=== PATIENT | female | born 1980 | race Caucasian/White ===

== ENCOUNTER → 2018-04-22 16:29 | Outpatient (CLI) | payer OTHER, MEDICAID, SELFPAY | PROVIDERS: Family Provider Internal Medicine; PCP Internal Medicine; Visit Provider Physician Assistant | DX: R10.9 Unspecified abdominal pain (principal); R31.9 Hematuria, unspecified | CPT/HCPCS: 87086 ==

== ENCOUNTER → 2018-04-22 16:55 | Outpatient (CLI) | payer OTHER, MEDICAID, SELFPAY ==
[2018-04-22 17:41] LABS: Add Manual Diff / Slide Review NO; Basophils Percent Auto 0.5 % (0-2); Eosinophils Percent Auto 5.6 % (2-4); Hematocrit 41.1 % (36-46); Hemoglobin 13.7 g/dL (12.0-16.0); Lymphocytes Percent Auto 32.5 % (25-40); Mean Corpuscular HGB Conc 33.3 % (30-36); Mean Corpuscular Volume 93.3 fL (80-100); Monocytes Percent Auto 5.8 % (3-14); Neutrophils Absolute Auto 6100 /uL (3000-5900); Neutrophils Percent Auto 55.6 % (50-75); Platelet Count 323 X10^3/uL (150-400); Red Blood Cell Count 4.41 X10^6/uL (4.0-5.2); Red Cell Distribution Width 12.8 % (11.6-14.8); White Blood Cell Count 11.1 X10^3/uL (4.5-11.0)
[2018-04-22 18:08] LABS: Alanine Aminotransferase 53 IU/L (9-52); Albumin 4.6 g/dL (3.5-5.0); Albumin Globulin Ratio 1.5 (1.0-2.8); Alkaline Phosphatase 82 U/L (38-126); Aspartate Aminotransferase 25 IU/L (14-36); Bilirubin Total 0.1 mg/dL (0.2-1.3); Blood Urea Nitrogen 18 mg/dL (7-17); Calcium 9.5 mg/dL (8.4-10.2); Carbon Dioxide 25 mmol/L (22-32); Chloride 105 mmol/L (98-107); Estimated Glomerular Filt Rate > 60.0 mL/min (>60); Glucose 94 mg/dL (70-100); HEMOLYSIS < 15 (0-50); Sodium 143 mmol/L (137-145); Total Protein 7.6 g/dL (6.3-8.2)
== END ==
PROVIDERS: Family Provider Internal Medicine; PCP Internal Medicine; Visit Provider Physician Assistant
DX: R10.9 Unspecified abdominal pain (principal)
CPT/HCPCS: 36415; 80053; 85025; 87086

== ENCOUNTER 2018-12-11 17:17 | Emergency (ER) | payer OTHER, MEDICAID, SELFPAY ==
[2018-12-11 17:24] VITALS: BP 96/64; PULSE 95; RESP 22; TEMP 37.5; O2SAT 96
--- NOTE | 2018-12-11 18:00 | PC.NURSE ---
States took all regular seizure meds last night but this morning took 3mg of lorazapam even thought bottle says 1 mg 4 times a day. States cannot get any pain meds until tomorrow for hurt foot that is bruised and she was seen at [facility] for. Speech is slurred. Does not c/o seizures but states foot pain. Unclear what patient is asking to be evaluated for.
--- NOTE | 2018-12-11 18:04 | ED_ITS ---
HPI - Seizure General Chief Complaint: Seizure Stated Complaint: STATES HAD A SEIZURE TODAY Time Seen by Provider: 12/11/18 18:03 Source: patient Mode of arrival: ambulatory Limitations: no limitations History of Present Illness HPI Narrative: Patient is a 38-year-old female with a history of seizures. She is currently on Dilantin. She has not had a change in her Dilantin medicines for many years now. Her Dilantin is managed by her primary provider. She does not have a neurologist currently. She states that prior to the events in the past week she has not had a seizure in over a year. She states that last she had a seizure. Was seen in an outside facility. She states that during that event she did injure her right foot. She had swelling and pain and bruising around the right foot. A couple days later she went back into the emergency department where she stated that she had an x-ray done of her foot and was told that there were no fractures. She reports that today she had more seizure-like activity. She has some confusion regarding the symptoms today. She also was having worsening pain of her right foot. She has a follow-up tomorrow with her primary doctor already scheduled. Related Data Home Medications Medication Instructions Recorded Confirmed cyclobenzaprine 10 mg PO TID 12/11/18 12/11/18 gabapentin 300 mg PO DAILY 12/11/18 12/11/18 lorazepam 1 mg PO QID 12/11/18 12/11/18 nortriptyline 150 mg PO BEDTIME PRN 12/11/18 12/11/18 omeprazole 40 mg PO BID 12/11/18 12/11/18 oxycodone-acetaminophen 1 tab PO Q6H PRN 12/11/18 12/11/18 sulfamethoxazole-trimethoprim 1 tab PO BIDX7 12/11/18 venlafaxine 300 mg PO DAILY 12/11/18 12/11/18 Previous Rx's Medication Instructions Recorded phenytoin sodium extended 100 mg 100 mg PO BID #180 cap 09/11/18 capsule Allergies Allergy/AdvReac Type Severity Reaction Status Date / Time Penicillins [PENICILLINS] Allergy Severe Hives Verified 04/22/18 15:41 acyclovir [From ZOVIRAX] AdvReac Mild N&V, Verified 04/22/18 15:41 DIARRHEA Review of Systems Constitutional Denies fever(s) and Denies headache(s) ENT Ears, Nose, Mouth, and Throat: Denies headache(s) Cardiovascular Denies chest pain and Denies dyspnea Respiratory Denies dyspnea Gastrointestinal Gastrointestinal: Denies abdominal pain Musculoskeletal Comments: Right foot pain Integumentary/Breasts Comments: Bruising and swelling around the right foot Neurologic Reports confusion, Denies headache(s), Reports memory loss and Reports seizure- like activity Psychiatric Reports anxiety, Reports confusion and Reports memory loss Hematologic/Lymphatic Denies easy bleeding and Denies easy bruising [facility] Medical History Anxiety (Acute) Seizures (Acute) Surgical History (Updated 11/13/17 @ 05:14 by Conversion Provider) History of third molar tooth extraction Status post delivery (07/08/10) Status post hysterectomy (07/31/16) Status post loop electrosurgical excision procedure (LEEP) of cervix (10/19/14) Status post tubal ligation Social History lives independently: Yes Social History lives independently: Yes Exam Initial Vital Signs Initial Vital Signs: Vital Signs Temperature 99.5 F 12/11/18 17:24 Pulse Rate 95 H 12/11/18 17:24 Respiratory Rate 22 12/11/18 17:24 Blood Pressure 96/64 12/11/18 17:24 Pulse Oximetry 96 12/11/18 17:24 Const General: cooperative, well developed, well groomed and No acute distress Orientation: alert, awake and oriented x3 [facility] Head: normal to inspection and normocephalic Resp Effort & Inspection: normal respiratory effort Auscultation: clear to auscultation bilaterally Cardio Rate: regular rate Rhythm: regular rhythm Pulses: radial pulses present and dorsalis pedis present on the right Skin Other: Patient with bruising around her right foot and around her toes. Neuro General: alert, awake and oriented x3 Cranial Nerves: CN's II-XI intact bilaterally Cognition: normal cognition Speech: speech normal Motor: muscle tone normal throughout Sensory Exam: no sensory deficits noted Extrem Other: Patient with tenderness to palpation around the 1st metatarsal. Ankle is unremarkable. Heels unremarkable. Psych Appearance: grossly normal and well kempt Procedures Orthopedic Splinting/Casting Injury #1: Side: right Lower Extremity Injury Location: foot Lower Extremity Immobilizer: posterior splint Other Orthopedic Equipment: crutches Post splinting neuro exam: intact and no change Post splinting vascular exam: no change Placed by: Provider Scores GCS [place] coma scale eye opening: Spontaneous Joanne coma scale verbal response: Orientated Joanne coma scale motor response: Obey commands Joanne coma scale total score: 15 Course Orders Ordered: ED Orders 12/11/18 18:04 EKG-12 Lead Stat 12/11/18 18:20 Ammonia (NH3) Stat Complete Blood Count AUTO DIFF Stat Comprehensive Metabolic Panel Stat Ethanol (ETOH) Stat Lipase Stat Phenytoin / Dilantin Stat Prolactin Stat 12/11/18 18:55 XR foot RT min 3V Stat 12/11/18 20:35 UA Complete [Urinalysis and Microscopic] Stat Discontinued Medications Hydrocodone Bitart/Acetaminophen ([place] 5/325) 1 tab PO NOW ONE Stop: 12/11/18 20:13 Last Admin: 12/11/18 20:15 Dose: 1 tab Hydrocodone Bitart/Acetaminophen (Vicodin Prepack) 1 bottle MISC SEEINSTR ONE Stop: 12/11/18 20:36 Last Admin: 12/11/18 21:01 Dose: 1 bottle Vital Signs - 8 hr 12/11/18 21:30 Pulse Rate 90 Respiratory Rate 20 Blood Pressure 104/68 Pulse Oximetry 98 MDM - Seizure Lab Data Attestation: I reviewed the patient's lab results. Result diagrams: 12/11/18 18:20 12/11/18 18:20 Lab Results 12/11/18 12/11/18 12/11/18 Range/Units 18:20 18:20 18:20 WBC 9.0 (4.5-11.0) X10^3/uL RBC 3.86 L (4.0-5.2) X10^6/uL Hgb 12.2 (12.0-16.0) g/dL Hct 36.5 (36-46) % MCV 94.5 (80-100) fL MCH 31.5 (26-34) PG MCHC 33.3 (30-36) % RDW 13.0 (11.6-14.8) % Plt Count 334 (150-400) X10^3/uL Neut % (Auto) 44.5 L (50-75) % Lymph % (Auto) 39.1 (25-40) % [place] % (Auto) 7.0 (3-14) % Eos % (Auto) 8.6 H (2-4) % Baso % (Auto) 0.8 (0-2) % Neut # (Auto) 4000 (0632-7726) /uL Lymph # (Auto) 3500 (6639-4561) /uL [place] # (Auto) 600 (0-900) /uL Eos # (Auto) 800 H (0-450) /uL Baso # (Auto) 100 (0-100) /uL Sodium 137 (137-145) mmol/L Potassium 4.7 (3.4-5.1) mmol/L Chloride 102 (98-107) mmol/L Carbon Dioxide 23 (22-32) mmol/L BUN 19 H (7-17) mg/dL Creatinine 0.70 (0.52-1.04) mg/dL Estimated GFR > 60.0 (>60) mL/min BUN/Creatinine Ratio 27.1 H (6-22) Glucose 98 (70-100) mg/dL Calcium 9.2 (8.4-10.2) mg/dL Total Bilirubin 0.4 (0.2-1.3) mg/dL AST 35 (14-36) IU/L ALT 41 (9-52) IU/L Alkaline Phosphatase 76 (38-126) U/L Ammonia 24.0 (9-30) umol/L Total Protein 7.9 (6.3-8.2) g/dL Albumin 4.5 (3.5-5.0) g/dL Globulin 3.4 (1.7-4.1) g/dL Albumin/Globulin Ratio 1.3 (1.0-2.8) Lipase 47 (23-300) U/L Prolactin 19.8 H (3.0-18.6) ng/mL Urine Color Urine Appearance Urine pH (4.5-8.0) Ur Specific [place] (1.000-1.035) Urine Protein (Negative) Urine Glucose (UA) (Negative) g/dL Urine Ketones (NEGATIVE) Urine Occult Blood (Negative) Urine Nitrate (Negative) Urine Bilirubin (NEGATIVE) Urine Urobilinogen (0.2) E.U./dL Ur Leukocyte Esterase (NEGATIVE) Urine RBC (0-5/HPF) Urine WBC (0-5/HPF) Ur Squamous Epith Cells (0-5/HPF) Urine Bacteria (None) Ur Culture Indicated? Phenytoin (10-20) ug/mL Ethyl Alcohol < 10 mg/dL 12/11/18 12/11/18 Range/Units 18:20 20:35 WBC (4.5-11.0) X10^3/uL RBC (4.0-5.2) X10^6/uL Hgb (12.0-16.0) g/dL Hct (36-46) % MCV (80-100) fL MCH (26-34) PG MCHC (30-36) % RDW (11.6-14.8) % Plt Count (150-400) X10^3/uL Neut % (Auto) (50-75) % Lymph % (Auto) (25-40) % [place] % (Auto) (3-14) % Eos % (Auto) (2-4) % Baso % (Auto) (0-2) % Neut # (Auto) (7566-4418) /uL Lymph # (Auto) (2312-7415) /uL [place] # (Auto) (0-900) /uL Eos # (Auto) (0-450) /uL Baso # (Auto) (0-100) /uL Sodium (137-145) mmol/L Potassium (3.4-5.1) mmol/L Chloride (98-107) mmol/L Carbon Dioxide (22-32) mmol/L BUN (7-17) mg/dL Creatinine (0.52-1.04) mg/dL Estimated GFR (>60) mL/min BUN/Creatinine Ratio (6-22) Glucose (70-100) mg/dL Calcium (8.4-10.2) mg/dL Total Bilirubin (0.2-1.3) mg/dL AST (14-36) IU/L ALT (9-52) IU/L Alkaline Phosphatase (38-126) U/L Ammonia (9-30) umol/L Total Protein (6.3-8.2) g/dL Albumin (3.5-5.0) g/dL Globulin (1.7-4.1) g/dL Albumin/Globulin Ratio (1.0-2.8) Lipase (23-300) U/L Prolactin (3.0-18.6) ng/mL Urine Color Yellow Urine Appearance Clear Urine pH 5.5 (4.5-8.0) Ur Specific [place] 1.025 (1.000-1.035) Urine Protein Negative (Negative) Urine Glucose (UA) Negative (Negative) g/dL Urine Ketones Negative (NEGATIVE) Urine Occult Blood Negative (Negative) Urine Nitrate Negative (Negative) Urine Bilirubin Negative (NEGATIVE) Urine Urobilinogen 0.2 (0.2) E.U./dL Ur Leukocyte Esterase Negative (NEGATIVE) Urine RBC 0-1/hpf (0-5/HPF) Urine WBC None seen (0-5/HPF) Ur Squamous Epith Cells 0-1 /hpf (0-5/HPF) Urine Bacteria None seen (None) Ur Culture Indicated? Cult not indicated Phenytoin 13.7 (10-20) ug/mL Ethyl Alcohol mg/dL Imaging Data X-ray foot: Radiologist's impression: [place] [address] XRay Report Signed Patient: Amanda Rosenberg [facility]#: [id number] : 1980Acct:[id number] Age/Sex: 38 / FDate of Service: 12/11/18 Loc: Accession Number: [id number] Procedure: XR foot RT min 3V Ordering Provider: Lester Barron D.O. PROCEDURE: XR FOOT RT MIN 3V INDICATIONS: pain and swelling TECHNIQUE: 3 views of the foot were acquired. COMPARISON: None. FINDINGS: Bones: There is cortical irregularity of the lateral aspect of the proximal base of the first metatarsal. Soft tissues: There is diffuse right forefoot soft tissue swelling. IMPRESSION: Cortical irregularity of the lateral aspect of the proximal base of the first metatarsal concerning for possible fracture versus degenerative change, with overlying diffuse right forefoot soft tissue swelling. Correlation with point tenderness recommended. Recommend followup radiographs 7-10 days if there is continued clinical concern. Dictated by: Greg Real M.D. on 12/11/2018 at 19:20 Approved by: Greg Real M.D. on 12/11/2018 at 19:25 ECG Data Attestation: I personally reviewed and interpreted this ECG as follows: Prior ECG tracings: not available for review Interpretation: Sinus rhythm Ventricular rate of 93 Normal axis Normal QRS Normal QTC No ST T wave changes MDM Narrative Medical decision making narrative: Patient is extremely anxious. She states that she normally does not have seizures when she gets anxious however she does have to take lorazepam if she leaves the house. This is prescribed by her primary provider. She already has an appointment tomorrow with her primary provider. She is tender to palpation over the area of the cortical irregularity seen on the x-ray. Given the rest of her physical exam I do have concern that t his is a fracture. She was placed in a posterior splint. She has crutches at home. She was instructed that she to talk with her primary doctor tomorrow about follow-up and referral to see orthopedics. She is currently on Dilantin. She has been taking her medications. Until just this past week she has not had a seizure in greater than a year. Will hold on increasing the Dilantin for now. Will have her primary doctor evaluate this. Patient and her daughter were given return precautions and follow-up instructions. Expressed understanding and agreement with plan. Discharge Plan Departure Patient Disposition: Home Clinical Impression: Seizure Foot fracture Qualifiers: Encounter type: initial encounter Fracture type: closed Laterality: right Qualified Code(s): S92.901A - Unspecified fracture of right foot, initial encounter for closed fracture Discharge Date/Time: 12/11/18 21:30 Interventions: ED Discharge Assessment Last Done: 12/11/18 21:30 Instructions: How to Take Care of Your Splint Activity Restrictions/Additional Instructions: Keep your appointment tomorrow that you already have scheduled with your primary provider. Discuss with your primary provider the indications for changing any of her seizure medication and also follow-up for your foot fracture. Return to the emergency department for any new or worsening symptoms Prescriptions: No Action phenytoin sodium extended [Dilantin Extended] 100 mg capsule 100 mg PO BID Qty: 180 RF: 0 cyclobenzaprine 10 mg tablet 10 mg PO TID RF: 0 omeprazole 40 mg capsule,delayed release(DR/EC) 40 mg PO BID RF: 0 nortriptyline 75 mg capsule 150 mg PO BEDTIME PRN (Reason: as directed) RF: 0 gabapentin 300 mg capsule 300 mg PO DAILY RF: 0 lorazepam 1 MG tablet 1 mg PO QID RF: 0 venlafaxine 150 mg capsule,extended release 24hr 300 mg PO DAILY RF: 0 sulfamethoxazole-trimethoprim 800-160 mg tablet 1 tab PO BIDX7 RF: 0 oxycodone-acetaminophen 5-325 mg tablet 1 tab PO Q6H PRN (Reason: pain) RF: 0 Referrals: Thee Brooks MD [Primary Care Provider] -
[2018-12-11 18:33] LABS: Add Manual Diff / Slide Review NO; Basophils Absolute Auto 100 /uL (0-100); Basophils Percent Auto 0.8 % (0-2); Eosinophils Absolute Auto 800 /uL (0-450); Eosinophils Percent Auto 8.6 % (2-4); Hematocrit 36.5 % (36-46); Hemoglobin 12.2 g/dL (12.0-16.0); Lymphocytes Absolute Auto 3500 /uL (1100-4500); Lymphocytes Percent Auto 39.1 % (25-40); Mean Corpuscular HGB Conc 33.3 % (30-36); Mean Corpuscular Hemoglobin 31.5 PG (26-34); Mean Corpuscular Volume 94.5 fL (80-100); Monocytes Absolute Auto 600 /uL (0-900); Neutrophils Absolute Auto 4000 /uL (1500-7000); Neutrophils Percent Auto 44.5 % (50-75); Platelet Count 334 X10^3/uL (150-400); Red Blood Cell Count 3.86 X10^6/uL (4.0-5.2)
[2018-12-11 18:47] LABS: Alanine Aminotransferase 41 IU/L (9-52); Albumin 4.5 g/dL (3.5-5.0); Albumin Globulin Ratio 1.3 (1.0-2.8); Alkaline Phosphatase 76 U/L (38-126); Aspartate Aminotransferase 35 IU/L (14-36); BUN Creatinine Ratio 27.1 (6-22); Bilirubin Total 0.4 mg/dL (0.2-1.3); Blood Urea Nitrogen 19 mg/dL (7-17); Calcium 9.2 mg/dL (8.4-10.2); Carbon Dioxide 23 mmol/L (22-32); Chloride 102 mmol/L (98-107); Estimated Glomerular Filt Rate > 60.0 mL/min (>60); Ethanol (ETOH) < 10 mg/dL; Globulin 3.4 g/dL (1.7-4.1); Glucose 98 mg/dL (70-100); Lipase 47 U/L (23-300); Sodium 137 mmol/L (137-145); Total Protein 7.9 g/dL (6.3-8.2)
[2018-12-11 18:48] LABS: HEMOLYSIS 65 (0-50); Potassium 4.7 mmol/L (3.4-5.1)
[2018-12-11 18:49] LABS: Phenytoin / Dilantin 13.7 ug/mL (10-20)
--- NOTE | 2018-12-11 18:55 | DI.RAD.S_ITS ---
PROCEDURE: XR FOOT RT MIN 3V INDICATIONS: pain and swelling TECHNIQUE: 3 views of the foot were acquired. COMPARISON: None. FINDINGS: Bones: There is cortical irregularity of the lateral aspect of the proximal base of the first metatarsal. Soft tissues: There is diffuse right forefoot soft tissue swelling. IMPRESSION: Cortical irregularity of the lateral aspect of the proximal base of the first metatarsal concerning for possible fracture versus degenerative change, with overlying diffuse right forefoot soft tissue swelling. Correlation with point tenderness recommended. Recommend followup radiographs 7-10 days if there is continued clinical concern. Dictated by: Greg Real M.D. on 12/11/2018 at 19:20 Approved by: Greg Real M.D. on 12/11/2018 at 19:25
[2018-12-11 19:01] LABS: Prolactin 19.8 ng/mL (3.0-18.6)
--- NOTE | 2018-12-11 19:43 | PC.NURSE ---
194 pt requesting pain medication notified
[2018-12-11] MEDS: HYDROCODONE/ACET 5/325 TABLET 1 TAB PO (20:15)
[2018-12-11 20:53] LABS: Bacteria Urine None Seen; WBC Urine None Seen (0-5/HPF)
[2018-12-11 20:57] LABS: Appearance Urine UA CLEAR; Bilirubin Urine UA NEGATIVE (NEGATIVE); Color Urine UA YELLOW; Glucose Urine UA NEGATIVE (Negative); Ketones Urine UA NEGATIVE (NEGATIVE); Leukocyte Esterase Urine UA NEGATIVE (NEGATIVE); Nitrite Urine UA NEGATIVE (Negative); Occult Blood Urine UA NEGATIVE (Negative); Protein Urine UA NEGATIVE (Negative); Specific Gravity Urine UA 1.025 (1.000-1.035); Urobilinogen Urine UA 0.2 E.U./dL (0.2); pH Urine UA 5.5 (4.5-8.0)
[2018-12-11] MEDS: HYDROCODONE/ACET 5/325 PREPACK 1 BOTTLE MISC (21:01)
[2018-12-11 21:07] LABS: Culture Indicated Urine Cult Not Indicated; RBC Urine 0-1/HPF (0-5/HPF); Squamous Epithelial Cell Urine 0-1 /HPF (0-5/HPF)
[2018-12-11 21:30] VITALS: BP 104/68; PULSE 90; RESP 20; O2SAT 98
== END 2018-12-11 21:30 | disposition home or self-care (01) ==
PROVIDERS: Emergency Provider Emergency Medicine; Family Provider Internal Medicine; PCP Internal Medicine
DX: S92.901A Unspecified fracture of right foot, initial encounter for closed fracture (principal); R56.9 Unspecified convulsions; R41.0 Disorientation, unspecified; R41.3 Other amnesia
CPT/HCPCS: 29515; 36591; 73630; 80053; 80185; 80320; 81001; 82140; 83690; 84146; 85025; 93005; 99283; 99285

== ENCOUNTER 2018-12-31 17:15 | Emergency (ER) | payer OTHER, MEDICAID, SELFPAY ==
[2018-12-31 17:17] VITALS: BP 109/71; PULSE 106; RESP 20; TEMP 37; O2SAT 98; BMI 35.7
--- NOTE | 2018-12-31 18:00 | ED.LOWEXIN ---
HPI - Extremity Injury (Lower) General Chief Complaint: Extremity Injury, Lower Stated Complaint: possible bone infection Time Seen by Provider: 12/31/18 18:00 Source: patient Mode of arrival: ambulatory Limitations: no limitations History of Present Illness HPI Narrative: Patient is a 38-year-old female. Approximately 1 week status post right foot surgery by a generator assembler over at [facility] secondary to a foot fracture. She saw her primary doctor today. There was concern for potential infection because the patient stated that she was having fevers at home. She does report some pain in her foot however no drainage from the incision. Prior to her surgery she was treated with 2 different antibiotics for a urinary tract infection. She stated that her doctor checked her for urinary tract infection today and told her that she did not have 1. She also states that she is feeling somewhat congested. She was told to come to the emergency department for concerns of a possible infection Related Data Home Medications Medication Instructions Recorded Confirmed cyclobenzaprine 10 mg PO TID 12/11/18 12/31/18 gabapentin 300 mg PO DAILY 12/11/18 12/31/18 lorazepam 1 mg PO QID 12/11/18 12/31/18 nortriptyline 150 mg PO BEDTIME PRN 12/11/18 12/31/18 omeprazole 40 mg PO BID 12/11/18 12/31/18 oxycodone-acetaminophen 1 tab PO Q6H PRN 12/11/18 12/31/18 venlafaxine 300 mg PO DAILY 12/11/18 12/31/18 metoprolol succinate 50 mg PO BID 12/31/18 12/31/18 Previous Rx's Medication Instructions Recorded phenytoin sodium extended 100 mg 100 mg PO BID #180 cap 09/11/18 capsule Allergies Allergy/AdvReac Type Severity Reaction Status Date / Time Penicillins [PENICILLINS] Allergy Severe Hives Verified 04/22/18 15:41 acyclovir [From ZOVIRAX] AdvReac Mild N&V, Verified 04/22/18 15:41 DIARRHEA Review of Systems Constitutional Reports fever(s) ENT Ears, Nose, Mouth, and Throat: Reports sinus pressure and Reports sore throat Cardiovascular Denies chest pain Respiratory Denies cough Gastrointestinal Gastrointestinal: Denies abdominal pain Musculoskeletal Denies myalgias and Denies arthralgias Comments: Right foot pain Integumentary/Breasts Comments: No drainage from the incision of the right foot Neurologic Comments: Some tingling to the right foot Hematologic/Lymphatic Denies easy bleeding and Denies easy bruising PFS Medical History Anxiety (Acute) Seizures (Acute) Surgical History History of third molar tooth extraction Status post delivery (07/08/10) Status post hysterectomy (07/31/16) Status post loop electrosurgical excision procedure (LEEP) of cervix (10/19/14) Status post tubal ligation Social History lives independently: Yes Smoking Status: Current every day smoker Social History lives independently: Yes Smoking Status: Current every day smoker Exam Initial Vital Signs Initial Vital Signs: Vital Signs Temperature 98.6 F 12/31/18 17:17 Pulse Rate 106 H 12/31/18 17:17 Respiratory Rate 20 12/31/18 17:17 Blood Pressure 109/71 12/31/18 17:17 Pulse Oximetry 98 12/31/18 17:17 Const General: cooperative, comfortable, well developed, well groomed and No acute distress Orientation: alert and awake Resp Effort & Inspection: normal respiratory effort Auscultation: clear to auscultation bilaterally Cardio Rate: tachycardic Rhythm: regular rhythm Pulses: dorsalis pedis present on the right Skin Other: Surgical incision on the dorsum of the right foot intact. Without redness. Neuro General: alert and awake Cognition: normal cognition Extrem Other: Some swelling to the dorsum of the right foot Psych Appearance: grossly normal and well kempt Course Orders Ordered: ED Orders 12/31/18 18:14 XR foot RT min 3V Stat 12/31/18 19:15 C-Reactive Protein Quant Stat Complete Blood Count AUTO DIFF Stat Comprehensive Metabolic Panel Stat Erythrocyte Sedimentation Rate Stat Vital Signs - 8 hr 12/31/18 17:17 12/31/18 18:50 12/31/18 20:28 Temperature 98.6 F 98.2 F Pulse Rate 106 H 99 H 89 Respiratory Rate 20 17 20 Blood Pressure 109/71 Blood Pressure [Right Arm] 117/71 120/72 Pulse Oximetry 98 100 98 MDM - Extremity Injury (Lower) Lab Data Attestation: I reviewed the patient's lab results. Result diagrams: 12/31/18 19:15 12/31/18 19:15 Lab Results 12/31/18 12/31/18 Range/Units 19:15 19:15 WBC 11.7 H (4.5-11.0) X10^3/uL RBC 3.64 L (4.0-5.2) X10^6/uL Hgb 11.5 L (12.0-16.0) g/dL Hct 34.4 L (36-46) % MCV 94.4 (80-100) fL MCH 31.5 (26-34) PG MCHC 33.4 (30-36) % RDW 13.3 (11.6-14.8) % Plt Count 255 (150-400) X10^3/uL Neut % (Auto) 51.1 (50-75) % Lymph % (Auto) 36.4 (25-40) % [place] % (Auto) 5.9 (3-14) % Eos % (Auto) 5.8 H (2-4) % Baso % (Auto) 0.8 (0-2) % Neut # (Auto) 6000 (9049-9900) /uL Lymph # (Auto) 4300 (5417-1113) /uL [place] # (Auto) 700 (0-900) /uL Eos # (Auto) 700 H (0-450) /uL Baso # (Auto) 100 (0-100) /uL ESR 35 H (0-20) MM/HR Sodium 142 (137-145) mmol/L Potassium 3.6 (3.4-5.1) mmol/L Chloride 107 (98-107) mmol/L Carbon Dioxide 28 (22-32) mmol/L BUN 12 (7-17) mg/dL Creatinine 0.50 L (0.52-1.04) mg/dL Estimated GFR > 60.0 (>60) mL/min BUN/Creatinine Ratio 24.0 H (6-22) Glucose 90 (70-100) mg/dL Calcium 8.9 (8.4-10.2) mg/dL Total Bilirubin 0.3 (0.2-1.3) mg/dL AST 27 (14-36) IU/L ALT 37 (9-52) IU/L Alkaline Phosphatase 91 (38-126) U/L C-Reactive Protein 1.7 H (<1.0) mg/dL Total Protein 7.1 (6.3-8.2) g/dL Albumin 4.0 (3.5-5.0) g/dL Globulin 3.1 (1.7-4.1) g/dL Albumin/Globulin Ratio 1.3 (1.0-2.8) Imaging Data XR foot: Radiologist's impression: [address] [address] XRay Report Signed Patient: Amanda Rosenberg MMR#: [id number] : 1980Acct:[id number] Age/Sex: 38 / FDate of Service: 12/31/18 Loc: ED Accession Number: [id number] Procedure: XR foot RT min 3V Ordering Provider: Lester Barron D.O. PROCEDURE: XR FOOT RT MIN 3V INDICATIONS: S/P surgery with fever eval for osteo TECHNIQUE: 3 views of the foot were acquired. COMPARISON: [facility], , XR FOOT RT MIN 3V, 12/11/2018, 19:00. FINDINGS: Bones: No fractures or dislocations. No suspicious bony lesions. Plate and screw fixation of the first and second tarsometatarsal joints. Hardware appears intact. No focal osseous destruction is seen. There is diffuse forefoot soft tissue swelling. No tibiotalar joint effusion. Achilles tendon appears normal. IMPRESSION: No focal osseous destruction to suggest advanced osteomyelitis. If there is persistent clinical concern, continued short interval radiographic followup or contrast enhanced MRI could be performed to assess for early infection. Forefoot soft tissue swelling. Dictated by: Santosh Ellis M.D. on 12/31/2018 at 18:46 Approved by: Santosh Ellis M.D. on 12/31/2018 at 18:49 MDM Narrative Medical decision making narrative: Patient's heart rate improved in the emergency department. She is afebrile. Her physical exam is not consistent with infection. The x-ray shows no signs of osteomyelitis. She does have a slight increase in some of her inflammatory markers however this could very well be expected this close to surgery. She has a follow-up with her operative surgeon tomorrow. Will hold on antibiotics for now. I suspect that her fever secondary to the sinus congestion sore throat that she is having. Patient was given return precautions and follow-up instructions. She expressed understanding and agreement plan Discharge Plan Departure Patient Disposition: Home Clinical Impression: Post-operative complication Qualifiers: Surgical complication system/body Area: [id number] Encounter type: initial encounter Postoperative shock type: other Discharge Date/Time: 12/31/18 20:57 Interventions: ED Discharge Assessment Last Done: 12/31/18 20:55 Activity Restrictions/Additional Instructions: Keep your appointment that you have with your operative provider tomorrow. Continue all of your post operative instructions give to you by your surgeon. Return to the ER for any new or worsening symptoms. Prescriptions: No Action phenytoin sodium extended [Dilantin Extended] 100 mg capsule 100 mg PO BID Qty: 180 RF: 0 cyclobenzaprine 10 mg tablet 10 mg PO TID RF: 0 omeprazole 40 mg capsule,delayed release(DR/EC) 40 mg PO BID RF: 0 nortriptyline 75 mg capsule 150 mg PO BEDTIME PRN (Reason: as directed) RF: 0 gabapentin 300 mg capsule 300 mg PO DAILY RF: 0 lorazepam 1 MG tablet 1 mg PO QID RF: 0 venlafaxine 150 mg capsule,extended release 24hr 300 mg PO DAILY RF: 0 oxycodone-acetaminophen 5-325 mg tablet 1 tab PO Q6H PRN (Reason: pain) RF: 0 metoprolol succinate 50 mg tablet extended release 24 hr 50 mg PO BID RF: 0 Referrals: Thee Brooks MD [Primary Care Provider] -
--- NOTE | 2018-12-31 18:14 | DI.RAD.S_ITS ---
PROCEDURE: XR FOOT RT MIN 3V INDICATIONS: S/P surgery with fever eval for osteo TECHNIQUE: 3 views of the foot were acquired. COMPARISON: [facility], CR, XR FOOT RT MIN 3V, 12/11/2018, 19:00. FINDINGS: Bones: No fractures or dislocations. No suspicious bony lesions. Plate and screw fixation of the first and second tarsometatarsal joints. Hardware appears intact. No focal osseous destruction is seen. There is diffuse forefoot soft tissue swelling. No tibiotalar joint effusion. Achilles tendon appears normal. IMPRESSION: No focal osseous destruction to suggest advanced osteomyelitis. If there is persistent clinical concern, continued short interval radiographic followup or contrast enhanced MRI could be performed to assess for early infection. Forefoot soft tissue swelling. Dictated by: Santosh Ellis M.D. on 12/31/2018 at 18:46 Approved by: Santosh Ellis M.D. on 12/31/2018 at 18:49
[2018-12-31 18:50] VITALS: BP 117/71; PULSE 99; RESP 17; O2SAT 100
--- NOTE | 2018-12-31 19:12 | PC.NURSE ---
s/p right foot tendon repair december 20, states, still has swelling and pain, now with fever, concern for infection
[2018-12-31 19:29] LABS: Add Manual Diff / Slide Review NO; Basophils Absolute Auto 100 /uL (0-100); Basophils Percent Auto 0.8 % (0-2); Eosinophils Absolute Auto 700 /uL (0-450); Eosinophils Percent Auto 5.8 % (2-4); Hematocrit 34.4 % (36-46); Hemoglobin 11.5 g/dL (12.0-16.0); Lymphocytes Absolute Auto 4300 /uL (1100-4500); Lymphocytes Percent Auto 36.4 % (25-40); Mean Corpuscular HGB Conc 33.4 % (30-36); Mean Corpuscular Hemoglobin 31.5 PG (26-34); Mean Corpuscular Volume 94.4 fL (80-100); Monocytes Absolute Auto 700 /uL (0-900); Monocytes Percent Auto 5.9 % (3-14); Neutrophils Absolute Auto 6000 /uL (1500-7000); Neutrophils Percent Auto 51.1 % (50-75); Platelet Count 255 X10^3/uL (150-400); Red Blood Cell Count 3.64 X10^6/uL (4.0-5.2); Red Cell Distribution Width 13.3 % (11.6-14.8); White Blood Cell Count 11.7 X10^3/uL (4.5-11.0)
[2018-12-31 19:44] LABS: Alanine Aminotransferase 37 IU/L (9-52); Albumin Globulin Ratio 1.3 (1.0-2.8); Alkaline Phosphatase 91 U/L (38-126); Aspartate Aminotransferase 27 IU/L (14-36); Bilirubin Total 0.3 mg/dL (0.2-1.3); Blood Urea Nitrogen 12 mg/dL (7-17); C-Reactive Protein Quant 1.7 mg/dL (<1.0); Calcium 8.9 mg/dL (8.4-10.2); Carbon Dioxide 28 mmol/L (22-32); Chloride 107 mmol/L (98-107); Estimated Glomerular Filt Rate > 60.0 mL/min (>60); Globulin 3.1 g/dL (1.7-4.1); Glucose 90 mg/dL (70-100); HEMOLYSIS < 15 (0-50); Potassium 3.6 mmol/L (3.4-5.1); Sodium 142 mmol/L (137-145); Total Protein 7.1 g/dL (6.3-8.2)
[2018-12-31 19:49] LABS: Erythrocyte Sedimentation Rate 35 MM/HR (0-20)
[2018-12-31 20:28] VITALS: BP 120/72; PULSE 89; RESP 20; TEMP 36.8; O2SAT 98
--- NOTE | 2018-12-31 20:28 | PC.NURSE ---
[facility] contacted for copy of xray prior to d/c.
== END 2018-12-31 20:57 | disposition home or self-care (01) ==
PROVIDERS: Emergency Provider Emergency Medicine; Family Provider Internal Medicine; PCP Internal Medicine
DX: T81.9XXA Unspecified complication of procedure, initial encounter (principal)
CPT/HCPCS: 36415; 73630; 80053; 85025; 85651; 86140; 99283; 99284

== ENCOUNTER 2019-05-30 15:01 | Observation (INO) | payer OTHER, MEDICAID, SELFPAY ==
[2019-05-22 07:26] VITALS: BMI 34.7
[2019-05-29] VITALS (16 sets, daily range): BP systolic 98–148; BP diastolic 47–91; PULSE 76–921; RESP 9–18; TEMP 35.9–37.5; O2SAT 93–99; BMI 35.0
[2019-05-29] MEDS: LACTATED RINGERS 1,000 ML 100 ML IV ×3 (10:22→23:40)
--- NOTE | 2019-05-29 10:22 | SUR.PREOP ---
Spoke with Dr. Gonzales about pt's allergy and antibiotic order.
--- NOTE | 2019-05-29 10:38 | PM.PREOP ---
Pre-operative Note Interval Note History & Physical reviewed/Exam performed by Physician: Yes Changes to H&P: No
[2019-05-29] MEDS: CEFAZOLIN 2 GM/100 ML FROZ.PIGGY IV (10:52)
--- NOTE | 2019-05-29 11:22 | SUR.OPER ---
Lithotomy on padded OR bed, head on pillow, arms secured on padded arm boards at <90 degrees abduction. Legs secured in padded yellow fins stirrups.
[2019-05-29] MEDS: BUPIVACAINE 0.25% W/ EPI 30 ML VIAL INJ (11:40)
--- NOTE | 2019-05-29 12:43 | SUR.PHASEI ---
Assumed care at 1236.
[2019-05-29] MEDS: HYDROMORPHONE 2 MG INJ IV (12:48)
--- NOTE | 2019-05-29 13:08 | SUR.PHASEI ---
Report called to Day
--- NOTE | 2019-05-29 13:37 | SUR.PHASEI ---
Patient transferred to floor with belongings bag. VS stable. IV saline locked. Scant amount of yellow color to mona-pad. Report given to Day.
--- NOTE | 2019-05-29 15:27 | PC.NURSE ---
Late entry: Pt was brought to the AC floor at approx. 1330 from PACU. She was A & O x 3 but sleepy. Molina catheter in place draining clear yellow urine. Tail of vaginal packing has been visualized. Scant to trace amount of serosanginous drainage noted on peripad. Pt denies pain. No n/v.
[2019-05-29] MEDS: INFLUENZA VACCINE 0.5 ML SYRINGE IM (16:01)
[2019-05-29] MEDS: OXYCODONE/ACETAMINOPHEN 5/325 TABLET 2 TAB PO ×2 (16:08→20:08)
[2019-05-29] MEDS: KETOROLAC 30 MG/ML VIAL IV (18:44)
[2019-05-29] MEDS: GABAPENTIN 300 MG CAPSULE PO (18:44)
[2019-05-29] MEDS: METOPROLOL ER 50 MG TABLET PO (20:05)
[2019-05-29] MEDS: DOCUSATE 250 MG CAPSULE PO (20:05)
[2019-05-29] MEDS: PANTOPRAZOLE 40 MG TABLET PO (20:08)
[2019-05-29] MEDS: ARIPiprazole 10 MG TABLET 5 MG PO (20:10)
--- NOTE | 2019-05-29 21:33 | PC.NURSE ---
Pain Control Patient reported 8 out of 10 pain located around vaginal area. Alyssa (RN) administered oxycodone/acetaminophen 5 mg / 325 mg PO at 20:08. Repositioned patient for pain relief. Reassessed patient's pain level and she reported a 3 out of 10. She feels much better and hopes to get enough sleep tonight. Encouraged patient to use the call light for assistance. Call light is within reach and bed is in the lowest position and locked.
--- NOTE | 2019-05-29 22:02 | PC.NURSE ---
pain controlled with 2 tabs of percocet. pt refused to ambulate today. SCDs on and moving her legs. mona pad had scant amount of blood. fernandez patent. pt feels that her bladder is full, repositioned pt and slightly pushed fernandez tubing in then it drained extra 100cc of urine out. pt states she feels more comfortable now. bladder scanned her and there was only 3ml. call light in reach. bed alarm active.
[2019-05-30] VITALS (8 sets, daily range): BP systolic 109–123; BP diastolic 53–69; PULSE 86–111; RESP 16–18; TEMP 36.3–37.4; O2SAT 96–100
[2019-05-30] MEDS: OXYCODONE/ACETAMINOPHEN 5/325 TABLET 2 TAB PO ×6 (00:19→22:04)
--- NOTE | 2019-05-30 01:09 | PC.NURSE ---
Addendum entered by Abigail Coulter R.N. 05/30/19 05:44: Slept past several hours. States pain this morning is again 7/10 so medicated with Percocet. Temp still slightly elevated at 99.3 Addendum entered by Abigail Coulter R.N. 05/30/19 01:25: States pain did get down to 4/10 but now back to 7/10; medicated with Toradol. Original Note: 0030 Patient is alert and oriented. Breath sounds CTA with RA sat of 96%. HRR but tachy at 106 bpm. Denies nausea. BT hypoactive but states she is passing flatus. Indwelling catheter is patent; urine is clear yellow. Complains of pressure type pain in vaginal area like a baby is ; rates severity as 7/10 so medicated with Percocet. Peripad changed with scant serous drainage. Is able to turn self in bed. Has chronic right foot tingling. Wearing bilateral calf SCD's. Mood is restless and anxious. Spouse present in room. Fall risk score is moderate; calls for assistance appropriately. Noted temp elevated at 99.5 so instructed in CDB to prevent complications; verbalizes understanding.
[2019-05-30] MEDS: KETOROLAC 30 MG/ML VIAL IV ×3 (01:23→16:10)
[2019-05-30] MEDS: METOPROLOL ER 50 MG TABLET PO ×2 (05:38→18:01)
[2019-05-30 06:47] LABS: Add Manual Diff / Slide Review NO; Basophils Absolute Auto 100 /uL (0-100); Basophils Percent Auto 0.4 % (0-2); Eosinophils Absolute Auto 0 /uL (0-450); Eosinophils Percent Auto 0.3 % (2-4); Hematocrit 32.8 % (36-46); Lymphocytes Absolute Auto 2200 /uL (1100-4500); Lymphocytes Percent Auto 12.5 % (25-40); Mean Corpuscular HGB Conc 33.6 % (30-36); Mean Corpuscular Hemoglobin 30.7 PG (26-34); Mean Corpuscular Volume 91.3 fL (80-100); Monocytes Absolute Auto 1000 /uL (0-900); Monocytes Percent Auto 5.4 % (3-14); Neutrophils Absolute Auto 14600 /uL (1500-7000); Neutrophils Percent Auto 81.4 % (50-75); Platelet Count 273 X10^3/uL (150-400); Red Blood Cell Count 3.59 X10^6/uL (4.0-5.2); Red Cell Distribution Width 13.1 % (11.6-14.8); White Blood Cell Count 17.9 X10^3/uL (4.5-11.0)
[2019-05-30] MEDS: DOCUSATE 250 MG CAPSULE PO ×2 (09:08→18:02)
[2019-05-30] MEDS: PANTOPRAZOLE 40 MG TABLET PO ×2 (09:09→18:01)
[2019-05-30] MEDS: VENLAFAXINE ER 75 MG CAP 300 MG PO (09:09)
--- NOTE | 2019-05-30 12:49 | PC.NURSE ---
Addendum entered by Palak Andujar R.N. 05/30/19 13:18: At 1317, left message with Dr. Gonzales's nurse at office regarding pt's recent void of 300mls and PVR was 205mls. Also request from pt to speak with Dr. Gonzales prior to discharge. Original Note: Day Shift- Pt anxious this AM, needs re-directing during explanation of plan of care. [employer] needs to repeats statements several times. Pt's at bedside, support provided. Urinary catheter and packing removed at [address] Gonzales given to JENNIFER Hartman Coordinator. Pt voided X2 at 0950, for 90 mls total, PVR at 1005 was 108mls. Will continue to monitor. Toradol IV prn given at 0855 with little effect. PRN Percocet given at 0950 with good effect, pt wanted to rest/sleep. Pt aware to call with next void in order to perform PVR bladder scan. Pt wants to go home today.
--- NOTE | 2019-05-30 16:19 | PM.PNPO.1 ---
Subjective Subjective Date Patient Seen: 05/30/19 Time Patient Seen: 16:19 Interval history: Patient is a 39-year-old 4 para 3 who underwent an anterior and posterior repair yesterday. Her Fernandez catheter was removed this morning as well as her vaginal packing. She has had increasing volume of postvoid residuals since the catheter was removed. Her bladder is feeling very full. Exam Vital Signs (past 8 hours): - 05/30/19 12:30 Temperature 98.6 F Pulse Rate 90 Respiratory Rate 17 Blood Pressure 118/65 Pulse Oximetry 96 Oxygen Delivery Method Room Air Oxygen Flow Rate 0 Narrative Exam Narrative: Generally: Patient lying in bed, no acute distress Lungs: Clear to auscultation bilaterally Cardiovascular: Regular rate and rhythm Abdomen: Soft, flat. Perineum: Intact. Small amount of blood Objective Labs Result Diagrams: 05/30/19 06:32 Labs: Laboratory Results - last 24 hr 05/30/19 06:32 WBC 17.9 H RBC 3.59 L Hgb 11.0 L Hct 32.8 L MCV 91.3 MCH 30.7 MCHC 33.6 RDW 13.1 Plt Count 273 Neut % (Auto) 81.4 H Lymph % (Auto) 12.5 L Bracken % (Auto) 5.4 Eos % (Auto) 0.3 L Baso % (Auto) 0.4 Neut # (Auto) 66446 H Lymph # (Auto) 2200 Bracken # (Auto) 1000 H Eos # (Auto) 0 Baso # (Auto) 100 Assessment & Plan Post-op Postoperative Procedures: Procedures Operation Date: 05/29/19 10:45 Actual Procedures Side Surgeon p Colporrhaphy Anterior/Posterior Brooke Gonzales MD Postoperative day: 1 Postoperative status: urinary retention (Increasing PVR's after fernandez catheter removed) and marginal pain control Postoperative plan: routine post-op care and voiding trials Postoperative plan narrative: Replace Fernandez catheter Fernandez catheter to be removed May 31, 2019 between 7 and 8:00 a.m. Voiding trials tomorrow morning Added codeine in between doses of Percocet for pain control Time Spent With Patient Time with patient: 15-24 minutes Quality VTE Deep Vein Thrombosis/Pulmonary Embolism Present on Admission: No
--- NOTE | 2019-05-30 16:21 | PM.GYNOP.1 ---
Operative Date/Time/Diagnoses Date of procedure: 05/29/19 Time of procedure: 12:15 Pre-op diagnosis: Symptomatic third-degree cystocele and third-degree rectocele Post-op diagnosis: same Procedure & Clinicians Procedure: Procedures Operation Date: 05/29/19 10:45 Actual Procedures Side Surgeon p Colporrhaphy Anterior/Posterior Brooke Gonzales MD Indications: Symptomatic third-degree cystocele and rectocele Surgeon: Brooke Gonzales Corrugator Operator: Tab Reed Anesthesia Type: General Operative Notes Findings: Third-degree cystocele Third-degree rectocele Closure Type: primary Specimen(s): none Applied: catheter Estimated blood loss (mL): 75 Blood products transfused: none Procedure in detail: The patient was taken to the operating room where she was placed in the dorsal supine position. After adequate general endotracheal anesthesia was achieved, she was placed in the dorsal lithotomy position, and prepped and draped in the usual sterile fashion. A time-out was performed. 2 Allis clamps were placed at the apex of the cystocele. 6 mL of half percent Marcaine with epinephrine were injected and an incision was made with a #10 blade between the 2 Allis clamps. Wide Allis clamps were placed on the midline of the cystocele approximately 5. The mucosa was undermined using the Metzenbaum scissors and the mucosa incised in the midline moving the wide Allis clamps to the edges of the mucosa. The mucosa was dissected off the underlying fascia using an open moistened Ray-Maci and a #10 blade. The fascia was reapproximated with 0 Vicryl with a series of horizontal mattress sutures. The excess vaginal mucosa was excised. The mucosa was closed using simple interrupted sutures with 2-0 Vicryl including the underlying fascia to close the space. The weighted speculum was removed from the vagina. Allis clamps were placed at the mucocutaneous junction at the introitus. 6 mL of half percent Marcaine with epinephrine were injected. An incision was made with a #10 blade between the 2 Allis clamps, and a triangular piece of skin and underlying subcutaneous tissue was removed. Allis clamps were placed in the midline of the rectocele. 10 mL of half percent Marcaine with epinephrine were injected submucosally. The mucosa was undermined using the Metzenbaum scissors and the mucosa incised in the midline, moving the wide Allis clamps to the mucosal edges. The underlying fascia was dissected off of th mucosa using an open moistened Ray-Maci and a #10 blade. The fascia was reapproximated using 0 Vicryl with a series of horizontal mattress sutures. The excess vaginal mucosa was excised. The mucosa was closed using 2-0 Vicryl in a running fashion, including the underlying fascia to close the space. On the perineum 0 Vicryl was used to reapproximate the levator muscle. The subcutaneous layer was closed with 2-0 Vicryl. The skin was closed with 2-0 chromic in a subcuticular fashion. Hemostasis was achieved. A Betadine moistened vaginal pack was placed into the vagina. A rectal exam was done and there were no sutures palpable in the rectum. The urine was clear. Sponge, lap, and instrument counts were correct x-2. The patient tolerated the procedure well, was taken to PACU in stable condition.m Complications: none Post-operative Condition: stable Disposition: PACU Plan for aftercare: To Acute Care after recovery
[2019-05-30] MEDS: OXYCODONE IR 5 MG TABLET PO (16:50)
[2019-05-30] MEDS: ARIPiprazole 10 MG TABLET 5 MG PO (18:02)
[2019-05-30] MEDS: LACTATED RINGERS 1,000 ML 100 ML IV (18:47)
[2019-05-31] MEDS: OXYCODONE IR 5 MG TABLET PO ×2 (00:10→09:22)
[2019-05-31] MEDS: OXYCODONE/ACETAMINOPHEN 5/325 TABLET 2 TAB PO ×3 (02:14→11:13)
[2019-05-31] MEDS: LACTATED RINGERS 1,000 ML 100 ML IV (03:36)
[2019-05-31 05:00] VITALS: BP 143/86; PULSE 88; RESP 16; TEMP 36; O2SAT 98
[2019-05-31 08:35] VITALS: BP 108/69; PULSE 95; RESP 20; TEMP 36.5; O2SAT 97
[2019-05-31] MEDS: DOCUSATE 250 MG CAPSULE PO (09:15)
[2019-05-31] MEDS: METOPROLOL ER 50 MG TABLET PO (09:15)
[2019-05-31] MEDS: VENLAFAXINE ER 75 MG CAP 300 MG PO (09:19)
--- NOTE | 2019-05-31 10:04 | PC.NURSE ---
Addendum entered by Palak Andujar R.N. 05/31/19 11:58: Dr. Gonzales aware that pt possibly had a vape device in her room as described below. Discharge summary packet reviewed with pt and her at bedside, questions answered. Pt given prescriptions for Percocet and Codeine. Pt given verbal instructions on constipation prevention, stool softeners, laxatives. Pt takes ex-lax at home and states she has a BM every 4 days when at home. Enc water drinking, no straining when trying to have a BM. Pt left unit via wheelchair at 1200 in no distress with all belongings. Pt's present to drive her home. Pt had RN escort via wheelchair. Addendum entered by Palak Andujar R.N. 05/31/19 10:12: This AM around 0910, pt assisted OOB to BR, a round rainbow colored disc device seen on pt's bed. When this investment underwriter asked what it was, pt's took and stated it was her compact. THis investment underwriter stated, I hope it's not something bad she puts in her lungs. stated no. RN Coordinator aware and will make Dr. Gonzales aware upon her arrival. Addendum entered by Palak Andujar R.N. 05/31/19 10:08: Pt's upset with this investment underwriter due to pt wanting her bed elevated high . Explained the need to have bed in the lowest position, pt on pain meds, door closed, in room intermittent, and risk of falls. stated you gotta have it your way. Original Note: Day Shift- Spoke with Dr. Gonzales at 1002, update given regarding, pt voided 650 between 1404-9292, PVR at 0850 was 147ml. Pt voided again at 0920 for 150ml. Scant sang drainage noted on mona-pad. Pt did c/o feeling like not emptying her bladder fully, pressure, vagina swelling, some inc when standing.
--- NOTE | 2019-05-31 13:04 | CM.IDA ---
Discharge Planning/Care Management CM Discharge Assessment Start: 05/31/19 12:46 Freq: Status: Active Protocol: Document 05/31/19 12:46 OLIVIER (Rec: 05/31/19 13:04 OLIVIER [id number]) Discharge Planning Assessment Assigned Regional Hr Manager MARY Martins DPOA/Assigned Designee Name Julian Alexander, mother and father Contact Information [phone] Advance Directives? No Advance Directives on File No History Provided By Patient Prior Living Arrangements House Household Members significant other,children Type of transporation used prior to Drives own vehicle admit Independent with ADL's Yes Is patient alert and oriented? Yes Caregiver for Another Yes: Children Comment This LUBE TECHNICIAN asks pt and spouse how old are your kids? spouse responds old enough Barriers to Discharge No Comment Home w/spouse and family to assist as needed Discharge Plan Home Transportation Arrangement Family Referrals Initiated None needed
== END 2019-05-31 12:01 | disposition home or self-care (01) ==
LOC: OR 15:16
PROVIDERS: Admitting Provider Obstetrics & Gynecology; Family Provider Internal Medicine; PCP Internal Medicine; Visit Provider Obstetrics & Gynecology
PROC: (CPT 57260; principal; 2019-05-29 10:45)
DX: N81.6 Rectocele (principal); N81.10 Cystocele, unspecified; F17.210 Nicotine dependence, cigarettes, uncomplicated; Z23 Encounter for immunization
CPT/HCPCS: 57260; 36415; 85025; 90471; 90656; G0378; J0690; J1100; J1170; J1885; J2405; J2704; J3010; Q2038

== ENCOUNTER → 2019-08-21 13:03 | Outpatient (CLI) | payer OTHER, MEDICAID, SELFPAY ==
[2019-05-29 14:42] VITALS: BMI 35.0
--- NOTE | 2019-08-21 13:04 | DI.US.S_ITS ---
LIMITED ULTRASOUND OF RIGHT BREAST AND AXILLA: 08/21/2019 CLINICAL: Palpable right breast lump. Comparison is made to exams dated: 08/21/2019 mammogram - [facility], 07/23/2015 mammogram, and 07/23/2015 ultrasound - [facility]. Real-time ultrasound of the right breast upper outer quadrant and axilla regions was performed. Carr scale images of the real-time examination were reviewed. No significant abnormalities were seen sonographically in the right breast or the right axilla. IMPRESSION: NEGATIVE There is no sonographic evidence of malignancy. Return to annual mammogram screening schedule is recommended. This exam was interpreted at Station ID: [id number]. Electronically Signed By: Doroteo Naranjo M.D. slc/:08/21/2019 15:25:44 letter sent: Normal Exam Ultrasound BI-RADS: 1 Negative
--- NOTE | 2019-08-21 13:04 | DI.US.S_ITS ---
LIMITED ULTRASOUND OF LEFT BREAST AND AXILLA: 08/21/2019 CLINICAL: Palpable left breast lump. Comparison is made to exams dated: 08/21/2019 mammogram - [facility], 07/23/2015 mammogram, and 07/23/2015 ultrasound - [facility]. Real-time ultrasound of the left breast upper outer quadrant and axilla regions was performed. Carr scale images of the real-time examination were reviewed. No significant abnormalities were seen sonographically in the left breast or the left axilla. IMPRESSION: BENIGN There is no sonographic evidence of malignancy. Return to annual mammogram screening schedule is recommended. This exam was interpreted at Station ID: [id number]. Electronically Signed By: Doroteo Naranjo M.D. slc/:08/21/2019 15:26:52 letter sent: Normal Exam Ultrasound BI-RADS: 2 Benign
--- NOTE | 2019-08-21 13:21 | DI.MG.S_ITS ---
Patient Name: BUD OLIVEROS date: 1980 Sex: F Attending Physician: Stefania Indications: Date: 08/21/2019 13:21 At the request of: ZOHRA LOPEZ Procedure: MM diagnostic mammo BI BILATERAL DIGITAL DIAGNOSTIC MAMMOGRAM 3D/2D: 08/21/2019 CLINICAL: Bilateral upper outer quadrant breast lumps and tenderness. Comparison is made to exams dated: 07/23/2015 mammogram and 07/23/2015 ultrasound - [facility]. The tissue of both breasts is heterogeneously dense. This may lower the sensitivity of mammography. Patient reports bilateral upper outer quadrant breast lumps and tenderness. There is dense fibroglandular tissue of the bilateral upper outer breast quadrants without other underlying mass or abnormality. No significant masses, calcifications, or other findings are seen in either breast. IMPRESSION: INCOMPLETE: NEEDS ADDITIONAL IMAGING EVALUATION Patient reports bilateral upper outer quadrant breast lumps and tenderness. There is dense fibroglandular tissue of the bilateral upper outer breast quadrants without other underlying mass or abnormality. A targeted ultrasound is recommended for further evaluation, and will be performed immediately following this exam. This exam was interpreted at Station ID: [id number]. NOTE: For mammograms, a report in lay terms will be sent to the patient. Approximately 15% of breast malignancies will not be visualized mammographically. In the management of a palpable breast mass, a negative mammogram must not discourage biopsy of a clinically suspicious lesion. Electronically Signed By: Greg Real M.D. ecl/:08/21/2019 14:00:56 ACR BI-RADS Category 0: Incomplete [id number] Continued Report - Page 2 of 2 Patient Name: BUD OLIVEROS date: 1980 Sex: F Attending Physician: Stefania Indications: Date: 08/21/2019 13:21 At the request of: ZOHRA LOPEZ Procedure: MM diagnostic mammo BI
== END ==
PROVIDERS: Family Provider Internal Medicine; PCP Internal Medicine; Referring Provider Obstetrics & Gynecology; Visit Provider Obstetrics & Gynecology
DX: R92.8 Other abnormal and inconclusive findings on diagnostic imaging of breast (principal); N63.21 Unspecified lump in the left breast, upper outer quadrant; N63.11 Unspecified lump in the right breast, upper outer quadrant; N64.4 Mastodynia
CPT/HCPCS: 76642; 77066; G0279

== ENCOUNTER 2019-09-09 13:40 | Day surgery (SDC) | payer OTHER, MEDICAID, SELFPAY ==
[2019-05-29 14:42] VITALS: BMI 35.0
[2019-09-09] MEDS: SODIUM CHLORIDE 0.9% 1,000 ML 200 ML IV (14:56)
[2019-09-09 15:06] VITALS: BP 117/77; PULSE 98; RESP 20; TEMP 36.4; O2SAT 99
[2019-09-09 15:07] VITALS: BMI 36.5
--- NOTE | 2019-09-09 15:36 | PM.PREOP ---
Pre-operative Note Interval Note History & Physical reviewed/Exam performed by Physician: Yes Changes to H&P: No H&P completed within 30 days and has changed as indicated here:: This is a patient with a history of severe PTSD, who did not tolerate her colonoscopy procedure with sedation back in October. Due to the high risk of another failed colonoscopy, and the risk of the endoscopist giving the high dose of sedation required for this patient while also trying to do her colonoscopy, an anesthesia consult was requested. It would be unsafe to proceed in this patient with conscious sedation provided by the endoscopist given her history. Therefore I have asked the anesthesiologist to manage her vitals and her sedation throughout the procedure. ASA Class (for procedural sedation): III
--- NOTE | 2019-09-09 16:02 | PM.OP.ENDO ---
Operative Date/Time/Diagnoses Date of procedure: 09/09/19 Time of procedure: 16:02 Pre-op diagnosis: Rectal bleeding Post-op diagnosis: other (Normal colon, grade 2 internal hemorrhoids without stigmata of bleeding) Procedure & Clinicians Study performed: Diagnostic colonoscopy Same procedure as scheduled: Yes Indications: Rectal bleeding Surgeon: Riya Shane Procedure Notes SCOAP/Timeout: Performed Procedure in detail: The patient was brought to the room and placed supine position. General anesthesia was induced the patient was intubated with an LMA by Dr. Haider. She was then placed in left lateral decubitus position with all bony prominences padded. A time-out was performed. Vitals were monitored throughout the procedure and remained stable. A rectal exam was performed revealing no abnormalities. The colonoscope was then introduced to the rectum and advanced to the cecum in the usual fashion. The cecum was identified by the appendiceal orifice, the mucosal tri-fold, and the ileocecal valve. The scope was then retracted while rotating side to side and examining each mucosal fold. At the conclusion of the procedure retroflexion was performed and small grade 1-2 internal hemorrhoids without stigmata of bleeding were seen. The scope was then withdrawn from the rectum the procedure was concluded. The patient tolerated the procedure well and was transferred to the PACU in stable condition. Scope withdrawal time: 8 Findings: internal hemorrhoids Specimen(s): none sent Complications: none Impression: Normal colon, grade 2 internal hemorrhoids without stigmata of bleeding Post-procedure Recommendations: Colonscopy in 10 years and Other recommendation (Use a daily fiber supplement such as Metamucil, do not sit on the toilet for more than 2 minutes at a time to have a bowel movement, follow-up as needed for hemorrhoid symptoms) Follow up: as needed Disposition: PACU
[2019-09-09 16:10] VITALS: BP 112/75; PULSE 92; RESP 18; TEMP 36.8; O2SAT 100
[2019-09-09 16:15] VITALS: BP 96/61; PULSE 92; RESP 12; O2SAT 99
[2019-09-09 16:20] VITALS: BP 99/77; PULSE 92; RESP 12; O2SAT 99
[2019-09-09 16:27] VITALS: BP 112/74; PULSE 93; RESP 12; TEMP 36.9; O2SAT 99
== END 2019-09-09 16:36 | disposition home or self-care (01) ==
PROVIDERS: Family Provider Internal Medicine; PCP Internal Medicine; Referring Provider Surgery; Visit Provider Surgery
PROC: 0DJD8ZZ Inspection of Lower Intestinal Tract, Via Natural or Artificial Opening Endoscopic (ICD-10-PCS; CPT 45378; principal; 2019-09-09 16:00)
DX: K64.1 Second degree hemorrhoids (principal); F43.10 Post-traumatic stress disorder, unspecified
CPT/HCPCS: 45378; J2704; J3010

== ENCOUNTER → 2019-12-20 15:08 | Outpatient (CLI) | payer OTHER, MEDICAID, SELFPAY ==
[2019-05-29 14:42] VITALS: BMI 35.0
[2019-12-21 07:27] LABS: COVID19 Sendout Not Detected (Not Detect)
== END ==
PROVIDERS: Family Provider Internal Medicine; PCP Internal Medicine; Visit Provider Physician Assistant
DX: Z01.818 Encounter for other preprocedural examination (principal)
CPT/HCPCS: 87635

== ENCOUNTER 2019-12-22 13:05 | Day surgery (SDC) | payer OTHER, MEDICAID, SELFPAY ==
[2019-05-29 14:42] VITALS: BMI 35.0
[2019-12-18 07:43] VITALS: BMI 32.8
[2019-12-22] VITALS (10 sets, daily range): BP systolic 95–119; BP diastolic 55–79; PULSE 92–100; RESP 8–16; TEMP 36.2–36.9; O2SAT 91–100; BMI 37.8
[2019-12-22] MEDS: LACTATED RINGERS 1,000 ML 42 ML IV ×2 (13:49→15:56)
[2019-12-22] MEDS: OXYMETAZOLINE NASAL SPRAY 30 ML 2 SPRAYS NASAL (13:50)
--- NOTE | 2019-12-22 14:56 | PM.PREOP ---
Pre-operative Note COVID-19 COVID-19 status: Negative Result date/Date tested (Pos, Neg/Pending): 12/20/19 Interval Note History & Physical reviewed/Exam performed by Physician: Yes Changes to H&P: No
--- NOTE | 2019-12-22 15:41 | SUR.OPER ---
Supine on padded OR bed, head on pillow, arms secured on padded arm boards at sides, legs uncrossed, safety belt at thigh.
[2019-12-22] MEDS: BUPIVACAINE 0.25% W/ EPI 30 ML VIAL INJ (15:46)
[2019-12-22] MEDS: LIDOCAINE 1% W/EPI 20 ML INJ (15:46)
--- NOTE | 2019-12-22 16:19 | PM.OP.1 ---
Operative Date/Time/Diagnoses Date of procedure: 12/22/19 Time of procedure: 16:19 Pre-op diagnosis: Chronic tonsillitis, recurring acute tonsillitis, throat pain Post-op diagnosis: same Procedure & Clinicians Procedure: Tonsillectomy Same procedure as scheduled: Yes Indications: 39-year-old female with the above diagnoses incompletely managed with medical therapy presents for the above procedure. Following discussion of the material risks benefits complications and alternatives the patient elected to proceed. Surgeon: Refugio Ray Click Yes if Unassisted: Yes Anesthesia Type: General and Local Operative Notes Findings: Intact palate single uvula 2 to 3+ endophytic tonsils, no adenoids Closure Type: not applicable Specimen(s): none sent Estimated Blood Loss (mL): 5 Blood products transfused: none Procedure in detail: Following identification and confirmation of consent, she was brought to the operating room suite and placed in the supine position. General endotracheal anesthesia was administered. The table was turned right side out with a head wrap and mouthgag placed. A red rubber catheter was inserted through the right nostril and out the mouth to retract the soft palate. Beginning on the left, the tonsil was removed via subcapsular dissection with hemostasis and dissection with the suction electrocautery on a setting of 30. This process was repeated on the right side with identical findings. Hemostasis was assured. The superficial wound bed was infiltrated bilaterally with a 1-1 mix of 1% lidocaine 1 100,000 epinephrine and 0.25% Marcaine 1 to [id number] epinephrine. She was extubated in the operating room and taken to recovery room in stable condition without known complication. Postoperative care: DC home, alternate Tylenol and Advil for pain control, continue long-term narcotic medication with additional oxycodone 5 mg as necessary. The patient's daughter Sue was contacted with the report of the surgery and will call with any questions. Complications: none Post-operative Condition: stable Disposition: same day surgery Plan for aftercare: DC home
[2019-12-22] MEDS: fentaNYL 100 MCG/2 ML INJ IV ×2 (16:32→16:43)
--- NOTE | 2019-12-22 16:40 | SUR.PHASEI ---
Report given to Taylor
--- NOTE | 2019-12-22 16:41 | SUR.PHASEI ---
assumed care from Tala Mattson RN. Pt awake, drowsy, talking/oriented. Taking ice chips
--- NOTE | 2019-12-22 16:52 | SUR.PHASEI ---
dozing intermittently, eating pudding when awake. Declines PO rx earilier, but asked her to let me know when she is ready for it. Tolerating pudding and ice chips well, stating that 'this isn't as bad as I expected. Explained the role of local anesthetic and the importance to be proactive in managing pain. Offered to crush pain pill declined
[2019-12-22] MEDS: OXYCODONE/ACETAMINOPHEN 5/325 TABLET 1 TAB PO (17:08)
[2019-12-22] MEDS: ACETAMINOPHEN 325 MG TABLET 650 MG PO (17:09)
--- NOTE | 2019-12-22 17:17 | SUR.PHASEI ---
states that she is feeling much better than anticipated. report given to Wilmer Luu RN. Pt dozing, arouses easily to voice.
--- NOTE | 2019-12-22 17:30 | SUR.PHASEII ---
Went over D/C instructions with patient. Tolerating po. States pain is 3 to 4 and tolerable.
== END 2019-12-22 17:53 | disposition home or self-care (01) ==
PROVIDERS: Family Provider Internal Medicine; PCP Internal Medicine; Referring Provider Otolaryngology; Visit Provider Otolaryngology
PROC: (CPT 42821; principal; 2019-12-22 14:30)
DX: J03.91 Acute recurrent tonsillitis, unspecified (principal); I10 Essential (primary) hypertension; M79.7 Fibromyalgia; R56.9 Unspecified convulsions
CPT/HCPCS: 42821; J1100; J2405; J2704; J3010